=== PATIENT | female | born 1940 | race Two or more races ===

== ENCOUNTER 2021-03-19 15:12 | Inpatient (IN) | payer OTHER ==
[~2021-03-19] VITALS: Ht 165.1 cm; Wt 78.5 kg
[~2021-03-19 15:12] MED LIST: ACET-285 PO; ASCO250T13 PO; ATEN-60 PO; CALC-355 PO; FURO40TA4 PO; GABA300C10 PO; HYDR-531 PO; LEVO75TA6 PO; LOVA20TA4 PO; MULT-228 PO; OMEG100078 PO; POTA10TA51 PO; TRAM50TA2 PO; WARF4TAB33 PO
[2021-03-19 15:56] LABS: Basophils # (auto) 0 10 ^3/uL (0-0.2); Basophils % (auto) 0.2 % (0.0-2.0); Eosinophils # (auto) 0 10 ^3/uL (0-0.8); Eosinophils % (auto) 0.8 % (0.0-7.0); Hematocrit 38.5 % (36.0-46.0); Hemoglobin 12.9 g/dL (12.2-16.2); Lymphocytes # (auto) 0.4 10 ^3/uL (0.4-5.4); Lymphocytes % (auto) 9.5 % (10.0-50.0); Mean Corpuscular Hemoglobin 35.1 pg (28.0-32.0); Mean Corpuscular Hgb Conc. 33.5 g/dL (32.0-36.0); Mean Corpuscular Volume 104.8 fL (80.0-100.0); Monocytes # (auto) 0.3 10 ^3/uL (0-1.3); Monocytes % (auto) 7.3 % (0.0-12.0); Neutrophils # (auto) 3.5 10 ^3/uL (1.6-8.6); Neutrophils % (auto) 82.2 % (37.0-80.0); Nucleated Red Blood Cells % 0.2 %; Red Blood Cells 3.67 10^6/uL (4.0-5.20); Red Cell Distribution Width 14.7 % (11.8-14.3); White Blood Cell 4.3 10^3/uL (4.4-10.8)
[2021-03-19 16:11] LABS: Albumin 3.3 g/dL (3.4-5.0); Calcium 9.5 mg/dL (8.5-10.1); Potassium 4.2 mmol/L (3.5-5.1)
[2021-03-19 16:16] LABS: BUN/Creatinine Ratio 40.7; Bilirubin, Total 2.3 mg/dL (0.2-1.0); Total Protein 6.2 g/dL (6.4-8.2)
[2021-03-19] MEDS ORDERED: ACETAMINOPHEN 325 MG TAB PO PRN (21:30)
[2021-03-19] MEDS ORDERED: TEMAZEPAM 15 MG CAP PO PRN (21:30)
[2021-03-19] MEDS ORDERED: MORPHINE SULFATE 4 MG/ML SYR/VIAL IV PRN (21:30)
[2021-03-19] MEDS ORDERED: ONDANSETRON HCL 4 MG/2 ML VIAL IV PRN (21:30)
[2021-03-19 21:41] LABS: Urine Bacteria MANY /hpf (None Seen); Urine Blood 1+ /uL (Negative); Urine Mucus FEW (None Seen); Urine Specific Gravity 1.025 (1.001-1.035); Urine WBC 3 /hpf (0 - 5)
[2021-03-19] MEDS: ATORVASTATIN 20 MG TAB PO SCH (22:15)
[2021-03-19 23:14] LABS: INR 2.53 (0.9-1.15); Partial Thromboplastin Time 37.2 sec (23.6-33.0)
[2021-03-19] MEDS: cefTRIAXone 1GM/50ML D5W 50 ML IV SCH (23:48)
[2021-03-20] MEDS: LEVOTHYROXINE SODIUM 25 MCG TAB PO SCH (06:57)
[2021-03-20 08:51] LABS: Basophils # (auto) 0 10 ^3/uL (0-0.2); Eosinophils # (auto) 0 10 ^3/uL (0-0.8); Hematocrit 37.9 % (36.0-46.0); Hemoglobin 12.6 g/dL (12.2-16.2); Lymphocytes # (auto) 0.7 10 ^3/uL (0.4-5.4); Mean Corpuscular Hemoglobin 34.8 pg (28.0-32.0); Monocytes # (auto) 0.4 10 ^3/uL (0-1.3); Nucleated Red Blood Cells % 0.2 %; White Blood Cell 3.5 10^3/uL (4.4-10.8)
[2021-03-20 08:55] LABS: Potassium 4.1 mmol/L (3.5-5.1)
[2021-03-20 08:56] LABS: Basophils % (auto) 0.5 % (0.0-2.0); Eosinophils % (auto) 0.5 % (0.0-7.0); Mean Corpuscular Hgb Conc. 33.3 g/dL (32.0-36.0); Mean Corpuscular Volume 104.4 fL (80.0-100.0); Monocytes % (auto) 10.5 % (0.0-12.0); Neutrophils # (auto) 2.4 10 ^3/uL (1.6-8.6); Neutrophils % (auto) 69.5 % (37.0-80.0); Red Blood Cells 3.63 10^6/uL (4.0-5.20); Red Cell Distribution Width 14.8 % (11.8-14.3)
[2021-03-20 09:11] LABS: Albumin 3.1 g/dL (3.4-5.0); BUN/Creatinine Ratio 46.6; Bilirubin, Total 2.1 mg/dL (0.2-1.0); Calcium 9.4 mg/dL (8.5-10.1); Total Protein 5.8 g/dL (6.4-8.2)
[2021-03-20 09:53] LABS: INR 2.4 (0.9-1.15)
[2021-03-20] MEDS: PANTOPRAZOLE 40 MG TAB PO SCH (09:53)
[2021-03-20] MEDS: ATENOLOL 50 MG TAB PO SCH (09:53)
[2021-03-20] MEDS: FUROSEMIDE 40 MG TAB PO SCH (09:53)
[2021-03-20] MEDS: HYDROcodone-ACET 5/325MG TAB PO PRN (15:40)
[2021-03-20] MEDS ORDERED: WARFARIN SODIUM 2 MG TAB PO ONE (17:00)
[2021-03-20] MEDS: cefTRIAXone 1GM/50ML D5W 50 ML IV SCH ×3 (21:06→22:08)
[2021-03-20] MEDS: ATORVASTATIN 20 MG TAB PO SCH (21:06)
[2021-03-21 04:38] VITALS: BP 126/50
[2021-03-21 05:22] LABS: Basophils # (auto) 0 10 ^3/uL (0-0.2); Eosinophils # (auto) 0 10 ^3/uL (0-0.8); Lymphocytes # (auto) 0.5 10 ^3/uL (0.4-5.4); Monocytes # (auto) 0.3 10 ^3/uL (0-1.3); Neutrophils # (auto) 2.5 10 ^3/uL (1.6-8.6); White Blood Cell 3.3 10^3/uL (4.4-10.8)
[2021-03-21 05:25] LABS: Basophils % (auto) 1.2 % (0.0-2.0); Eosinophils % (auto) 0.5 % (0.0-7.0); Hematocrit 35.6 % (36.0-46.0); Hemoglobin 12.2 g/dL (12.2-16.2); Lymphocytes % (auto) 14.6 % (10.0-50.0); Mean Corpuscular Hemoglobin 35.6 pg (28.0-32.0); Mean Corpuscular Hgb Conc. 34.4 g/dL (32.0-36.0); Mean Corpuscular Volume 103.6 fL (80.0-100.0); Monocytes % (auto) 8.3 % (0.0-12.0); Neutrophils % (auto) 75.4 % (37.0-80.0); Nucleated Red Blood Cells % 0.1 %; Red Blood Cells 3.44 10^6/uL (4.0-5.20); Red Cell Distribution Width 14.8 % (11.8-14.3)
[2021-03-21 05:38] LABS: Albumin 2.7 g/dL (3.4-5.0)
[2021-03-21] MEDS: LEVOTHYROXINE SODIUM 25 MCG TAB PO SCH (06:03)
[2021-03-21] MEDS: HYDROcodone-ACET 5/325MG TAB PO PRN ×2 (06:03→21:03)
[2021-03-21 08:00] VITALS: BP 100/60
[2021-03-21] MEDS: FUROSEMIDE 40 MG TAB PO SCH (10:00)
[2021-03-21] MEDS: ATENOLOL 50 MG TAB PO SCH (10:15)
[2021-03-21] MEDS: PANTOPRAZOLE 40 MG TAB PO SCH (10:15)
[2021-03-21 12:00] VITALS: BP 113/54
[2021-03-21 16:00] VITALS: BP 151/73
[2021-03-21] MEDS: ATORVASTATIN 20 MG TAB PO SCH (21:02)
[2021-03-21 22:00] VITALS: BP 120/73
[2021-03-22 05:00] VITALS: BP 139/83
[2021-03-22] MEDS: LEVOTHYROXINE SODIUM 25 MCG TAB PO SCH (06:10)
[2021-03-22 07:17] LABS: INR 3.26 (0.9-1.15); Partial Thromboplastin Time 42.1 sec (23.6-33.0)
[2021-03-22 09:00] VITALS: BP 126/77
[2021-03-22] MEDS: ATENOLOL 50 MG TAB PO SCH (10:00)
[2021-03-22] MEDS: PANTOPRAZOLE 40 MG TAB PO SCH (10:00)
[2021-03-22] MEDS: FUROSEMIDE 40 MG TAB PO SCH (10:00)
[2021-03-22] MEDS ORDERED: IOHEXOL 350 MG/ML 100ML IJ ONE (12:18)
[2021-03-22 12:47] VITALS: BP 121/68
[2021-03-22] MEDS ORDERED: FUROSEMIDE 40 MG TAB PO ONE (19:30)
[2021-03-22 20:20] VITALS: BP 116/66
[2021-03-22] MEDS: cefTRIAXone 1GM/50ML D5W 50 ML IV SCH (21:00)
[2021-03-22 22:00] VITALS: BP 116/66
[2021-03-22] MEDS: ATORVASTATIN 20 MG TAB PO SCH (22:00)
[2021-03-23 05:00] VITALS: BP 116/57
[2021-03-23] MEDS: LEVOTHYROXINE SODIUM 25 MCG TAB PO SCH (06:45)
[2021-03-23 07:18] LABS: INR 1.89 (0.9-1.15); Partial Thromboplastin Time 35.7 sec (23.6-33.0)
[2021-03-23 09:00] VITALS: BP 129/76
[2021-03-23] MEDS: PANTOPRAZOLE 40 MG TAB PO SCH (10:00)
[2021-03-23] MEDS: ATENOLOL 50 MG TAB PO SCH (10:00)
[2021-03-23] MEDS: FUROSEMIDE 40 MG TAB PO SCH (10:00)
== END 2021-03-23 11:24 | DRG 536 ==
LOC: ER 15:12 → WEST WING 15:12 → EDBD 15:12 → OVERFLOW 21:27 → WEST WING 03-20 22:57
PROVIDERS: ADMIT Nurse Practitioner; ATTEND Internal Medicine
DX: S32.512A Fracture of superior rim of left pubis, initial encounter for closed fracture (principal); D68.9 Coagulation defect, unspecified; E44.0 Moderate protein-calorie malnutrition; I48.20 Chronic atrial fibrillation, unspecified; S32.592A Other specified fracture of left pubis, initial encounter for closed fracture; W01.0XXA Fall on same level from slipping, tripping and stumbling without subsequent striking against object, initial encounter; I89.0 Lymphedema, not elsewhere classified; E03.9 Hypothyroidism, unspecified; Z96.642 Presence of left artificial hip joint; Z20.822 Contact with and (suspected) exposure to COVID-19; E78.5 Hyperlipidemia, unspecified; I10 Essential (primary) hypertension; Z82.3 Family history of stroke; Z80.1 Family history of malignant neoplasm of trachea, bronchus and lung; Z68.28 Body mass index [BMI] 28.0-28.9, adult; Y93.89 Activity, other specified; Y92.89 Other specified places as the place of occurrence of the external cause; Y99.8 Other external cause status
CPT/HCPCS: 36415; 70450; 71045; 71275; 72192; 80053; 81001; 82040; 82565; 83880; 84484; 85025; 85610; 85730; 87426; 93005; 96374; 96375; 97110; 97116; 97163; 97530; G0378; J0696; J2405

== ENCOUNTER 2022-01-10 15:04 | Inpatient (IN) | payer OTHER ==
[~2022-01-10] VITALS: Ht 162.6 cm; Wt 52.3 kg
[2022-01-10] MEDS ORDERED: ETOMIDATE (2MG/ML) 20ML VIAL IV ONE ×2 (15:55→16:00)
[2022-01-10] MEDS ORDERED: ROCURONIUM 10MG/ML 10ML VIAL IV ONE ×2 (15:56→16:00)
[2022-01-10] MEDS ORDERED: PROPOFOL 100 ML IV ONE (16:00)
[2022-01-10] MEDS ORDERED: PROPOFOL 100 ML IV SCH (16:00)
[2022-01-10 16:29] VITALS: BP 95/54
[2022-01-10] MEDS ORDERED: SODIUM CHLORIDE 0.9% 2,000 ML IV ONE (16:45)
[2022-01-10 17:03] LABS: Urine Blood 3+ /uL (Negative); Urine Specific Gravity 1.022 (1.001-1.035)
[2022-01-10 17:28] LABS: Amphetamine Screen, Urine NEGATIVE (NEGATIVE); Barbiturate Scree,Urine NEGATIVE (NEGATIVE); Benzodiazephine Screen, Urine NEGATIVE (NEGATIVE); Cannabinoid Screen, Urine NEGATIVE (NEGATIVE); Cocaine Screen, Urine NEGATIVE (NEGATIVE); Opiate Scree,Urine NEGATIVE (NEGATIVE); Phencyclidine Screen, Urine NEGATIVE (NEGATIVE)
[2022-01-10 17:35] LABS: BUN/Creatinine Ratio 38.4; Calcium 9.7 mg/dL (8.5-10.1); Magnesium 2.1 mg/dL (1.6-2.6)
[2022-01-10 17:38] LABS: Bilirubin, Total 2.5 mg/dL (0.2-1.0); Total Protein 5.9 g/dL (6.4-8.2)
[2022-01-10 17:40] LABS: Blood Alcohol < 3.0 mg/dL (0-5); Lipase 107 U/L (73-393)
[2022-01-10 17:43] LABS: Basophils # (auto) 0 10 ^3/uL (0-0.2); Eosinophils # (auto) 0 10 ^3/uL (0-0.8); Lymphocytes # (auto) 0.6 10 ^3/uL (0.4-5.4); Mean Corpuscular Hemoglobin 34.1 pg (28.0-32.0); Monocytes # (auto) 0.6 10 ^3/uL (0-1.3); Nucleated Red Blood Cells % 1.4 %
[2022-01-10 17:44] LABS: Hematocrit 45.5 % (36.0-46.0); Hemoglobin 14.4 g/dL (12.2-16.2); Lymphocytes % (auto) 12.1 % (10.0-50.0); Mean Corpuscular Hgb Conc. 31.8 g/dL (32.0-36.0); Mean Corpuscular Volume 107.4 fL (80.0-100.0); Monocytes % (auto) 11.8 % (0.0-12.0); Neutrophils % (auto) 76.1 % (37.0-80.0); Potassium 6.4 mmol/L (3.5-5.1); Red Blood Cells 4.23 10^6/uL (4.0-5.20); Red Cell Distribution Width 17.2 % (11.8-14.3); White Blood Cell 5.3 10^3/uL (4.4-10.8)
[2022-01-10] MEDS ORDERED: ASPirin 325 MG TAB NG ONE (18:00)
[2022-01-10] MEDS ORDERED: ALBUTEROL SULF 2.5 MG/0.5ML(0.5%) NEB SOLN NEB ONE (18:00)
[2022-01-10] MEDS ORDERED: DexAMETHasone SOD PHOS 10MG/1ML VIAL INJ IV ONE (18:00)
[2022-01-10] MEDS ORDERED: SODIUM ZIRCONIUM CYCL 10 GM PAK PO ONE (18:00)
[2022-01-10] MEDS ORDERED: SODIUM BICARBONATE 8.4% INJ 50ML SYRINGE IV ONE (18:00)
[2022-01-10] MEDS ORDERED: InsuLIN REG 1unit/0.01ml Soln (100units/ml) IV ONE (18:00)
[2022-01-10] MEDS ORDERED: DEXTROSE (50%) 50ML SYRG IV ONE (18:00)
[2022-01-10] MEDS ORDERED: CALCIUM GLUC 1,000mg/50ml-NS 50 ML IV ONE (18:00)
[2022-01-10 18:28] VITALS: BP 127/70
[2022-01-10] MEDS ORDERED: NITROGLYCERIN 0.4 MG SL TAB SL PRN (19:45)
[2022-01-10] MEDS ORDERED: MORPHINE SULFATE INJ 2 MG/ml SYRG IV PRN (19:45)
[2022-01-10] MEDS: VANCOMYCIN 1GM/250ML 250 ML IV ONE ×2 (19:51→20:35)
[2022-01-10 20:00] VITALS: BP 143/73
[2022-01-10] MEDS ORDERED: PANTOPRAZOLE 40 MG/10 ML VIAL INJ IV ONE (20:00)
[2022-01-10] MEDS: fentaNYL Drip 2500mCg/250mlNS 250 ML IV SCH (20:07)
[2022-01-10] MEDS ORDERED: cefTRIAXone 1GM/50ML D5W 50 ML IV ONE (20:15)
[2022-01-10 20:44] LABS: Lactic Acid w/Reflex 3.8 mmol/L (0.4-2.0)
[2022-01-10 21:00] LABS: Cholesterol 100 mg/dL (< 200); LDL Cholesterol 72 mg/dL (< 100); Triglycerides 65 mg/dL (< 150)
[2022-01-10 21:05] LABS: HDL Cholesterol 36 mg/dL (40-59)
[2022-01-10 22:10] VITALS: BP_SYST 62; BP_SYST 98; BP_DIAS 62; BP_DIAS 73
[2022-01-11] VITALS (13 sets, daily range): BP systolic 85–171; BP diastolic 47–86
[2022-01-11] MEDS: SODIUM CHLORIDE 0.9% 1,000 ML IV SCH ×2 (00:07→12:44)
[2022-01-11] MEDS: ALBUTEROL SULF 2.5 MG/0.5ML(0.5%) NEB SOLN NEB SCH ×4 (01:13→18:02)
[2022-01-11] MEDS ORDERED: MIDAZOLAM DRIP 50 mg/50mL 50 ML IV SCH (03:45)
[2022-01-11 04:38] LABS: Basophils # (auto) 0 10 ^3/uL (0-0.2); Eosinophils # (auto) 0 10 ^3/uL (0-0.8); Lymphocytes # (auto) 0.3 10 ^3/uL (0.4-5.4); Mean Corpuscular Hgb Conc. 32.4 g/dL (32.0-36.0); Monocytes # (auto) 0.4 10 ^3/uL (0-1.3); White Blood Cell 6.3 10^3/uL (4.4-10.8)
[2022-01-11 04:41] LABS: Basophils % (auto) 0.1 % (0.0-2.0); Eosinophils % (auto) 0.1 % (0.0-7.0); Lymphocytes % (auto) 4.8 % (10.0-50.0); Monocytes % (auto) 6.2 % (0.0-12.0); Neutrophils # (auto) 5.6 10 ^3/uL (1.6-8.6); Neutrophils % (auto) 88.8 % (37.0-80.0); Nucleated Red Blood Cells % 1.2 %; Red Cell Distribution Width 15.9 % (11.8-14.3)
[2022-01-11 05:03] LABS: Albumin 2.6 g/dL (3.4-5.0); BUN/Creatinine Ratio 49.7; Bilirubin, Total 2.3 mg/dL (0.2-1.0); Calcium 9.2 mg/dL (8.5-10.1); Potassium 4.5 mmol/L (3.5-5.1)
[2022-01-11] MEDS ORDERED: PHENYLEPHRINE INJ 80 MG in SODIUM CHL 0.9% 242 ML IV SCH (08:00)
[2022-01-11] MEDS: PANTOPRAZOLE 40 MG/10 ML VIAL INJ IV SCH (08:36)
[2022-01-11] MEDS: cefTRIAXone 1GM/50ML D5W 50 ML IV SCH (08:37)
[2022-01-11] MEDS ORDERED: ENOXAPARIN SOD 30 MG/0.3 ML SYRINGE SC SCH (10:00)
[2022-01-11] MEDS ORDERED: FUROSEMIDE 20 MG/2 ML VIAL IV ONE (12:30)
[2022-01-11] MEDS: fentaNYL Drip 2500mCg/250mlNS 250 ML IV SCH (12:47)
[2022-01-11] MEDS ORDERED: ACETAMINOPHEN 650 mg PER 20.3 mL UD PO PRN (13:30)
[2022-01-11] MEDS ORDERED: DEXTROSE (50%) 50ML SYRG IV PRN (13:30)
[2022-01-11] MEDS: NOREPINEPHRINE BITARTRATE 16 MG in SODIUM CHL 0.9% 234 ML IV SCH (15:07)
[2022-01-11] MEDS: FUROSEMIDE 20 MG/2 ML VIAL IV SCH (17:23)
[2022-01-11] MEDS: InsuLIN REG 1unit/0.01ml Soln (100units/ml) SC SCH (17:45)
[2022-01-11] MEDS: ACCU-CHEK COMFORT CURVE STRIP VI SCH (17:46)
[2022-01-11] MEDS: IPRATROPIUM BROM 0.5 MG/2.5ML INH SOL NEB SCH (18:02)
[2022-01-11 19:34] LABS: INR 0.77 (0.9-1.15)
[2022-01-11] MEDS ORDERED: ENOXAPARIN SOD 60 MG/0.6 ML SYRINGE SC SCH (22:00)
[2022-01-11 22:56] LABS: Partial Thromboplastin Time 107.8 sec (24.6-33.4)
[2022-01-11] MEDS ORDERED: AMIODARONE HCL (50 MG/ ML) 3 ML VIAL IV ONE (23:43)
[2022-01-11] MEDS ORDERED: AMIODARONE HCL 150 MG in D5W 5% 100 ML IV ONE (23:45)
[2022-01-12] VITALS (22 sets, daily range): BP systolic 76–138; BP diastolic 31–94
[2022-01-12] MEDS: ALBUTEROL SULF 2.5 MG/0.5ML(0.5%) NEB SOLN NEB SCH ×4 (00:05→21:22)
[2022-01-12] MEDS: IPRATROPIUM BROM 0.5 MG/2.5ML INH SOL NEB SCH ×4 (00:05→21:21)
[2022-01-12] MEDS: SODIUM CHLORIDE 0.9% 1,000 ML IV SCH ×3 (03:45→17:53)
[2022-01-12] MEDS: InsuLIN REG 1unit/0.01ml Soln (100units/ml) SC SCH ×4 (06:00→16:19)
[2022-01-12] MEDS: FUROSEMIDE 20 MG/2 ML VIAL IV SCH ×2 (06:00→17:53)
[2022-01-12] MEDS: ACCU-CHEK COMFORT CURVE STRIP VI SCH ×4 (06:00→16:20)
[2022-01-12 06:25] LABS: Basophils # (auto) 0 10 ^3/uL (0-0.2); Eosinophils # (auto) 0 10 ^3/uL (0-0.8); Hemoglobin 13.2 g/dL (12.2-16.2); Lymphocytes # (auto) 0.3 10 ^3/uL (0.4-5.4); Mean Corpuscular Volume 103.3 fL (80.0-100.0); Monocytes # (auto) 0.4 10 ^3/uL (0-1.3)
[2022-01-12 06:27] LABS: Basophils % (auto) 0.3 % (0.0-2.0); Hematocrit 40.1 % (36.0-46.0); Lymphocytes % (auto) 3.9 % (10.0-50.0); Mean Corpuscular Hemoglobin 34.1 pg (28.0-32.0); Monocytes % (auto) 5.3 % (0.0-12.0); Neutrophils # (auto) 6.9 10 ^3/uL (1.6-8.6); Neutrophils % (auto) 90.5 % (37.0-80.0); Nucleated Red Blood Cells % 0.2 %; Red Blood Cells 3.88 10^6/uL (4.0-5.20); Red Cell Distribution Width 15.8 % (11.8-14.3); White Blood Cell 7.6 10^3/uL (4.4-10.8)
[2022-01-12 06:45] LABS: BUN/Creatinine Ratio 64.8; Calcium 7.7 mg/dL (8.5-10.1); Potassium 3.3 mmol/L (3.5-5.1)
[2022-01-12] MEDS ORDERED: POTASSIUM EFFERVESENT TAB 25 MEQ GT ONE (09:30)
[2022-01-12] MEDS: AZITHROMYCIN 500MG/ 250ML 250 ML IV SCH (10:22)
[2022-01-12] MEDS: PANTOPRAZOLE 40 MG/10 ML VIAL INJ IV SCH (10:22)
[2022-01-12] MEDS: cefTRIAXone 1GM/50ML D5W 50 ML IV SCH (10:22)
[2022-01-12] MEDS ORDERED: LOVA20TA4 PO (13:00)
[2022-01-12] MEDS ORDERED: PHYTONADIONE (VIT K)10 MG/ML 1ML VIAL SUBCUT ONE (13:00)
[2022-01-12] MEDS ORDERED: CYAN1TAB14 PO (13:02)
[2022-01-12] MEDS: NOREPINEPHRINE BITARTRATE 16 MG in SODIUM CHL 0.9% 234 ML IV SCH (13:30)
[2022-01-12] MEDS: fentaNYL Drip 2500mCg/250mlNS 250 ML IV SCH (19:45)
[2022-01-13] VITALS (8 sets, daily range): BP systolic 98–128; BP diastolic 35–58
[2022-01-13 03:56] LABS: Basophils # (auto) 0 10 ^3/uL (0-0.2); Basophils % (auto) 0.2 % (0.0-2.0); Eosinophils # (auto) 0 10 ^3/uL (0-0.8); Eosinophils % (auto) 0.1 % (0.0-7.0); Neutrophils # (auto) 4.2 10 ^3/uL (1.6-8.6)
[2022-01-13 03:58] LABS: Hemoglobin 10.6 g/dL (12.2-16.2); Lymphocytes # (auto) 0.5 10 ^3/uL (0.4-5.4); Lymphocytes % (auto) 9.1 % (10.0-50.0); Mean Corpuscular Hemoglobin 34.4 pg (28.0-32.0); Mean Corpuscular Volume 104.2 fL (80.0-100.0); Monocytes # (auto) 0.3 10 ^3/uL (0-1.3); Neutrophils % (auto) 83.6 % (37.0-80.0); Nucleated Red Blood Cells % 0.3 %; Red Blood Cells 3.07 10^6/uL (4.0-5.20); Red Cell Distribution Width 15.9 % (11.8-14.3)
[2022-01-13 04:11] LABS: Albumin 2.1 g/dL (3.4-5.0); Potassium 3.7 mmol/L (3.5-5.1)
[2022-01-13 04:16] LABS: BUN/Creatinine Ratio 60.2; Bilirubin, Total 1.8 mg/dL (0.2-1.0); Total Protein 4.2 g/dL (6.4-8.2)
[2022-01-13] MEDS: IPRATROPIUM BROM 0.5 MG/2.5ML INH SOL NEB SCH ×3 (04:19→12:11)
[2022-01-13] MEDS: ALBUTEROL SULF 2.5 MG/0.5ML(0.5%) NEB SOLN NEB SCH ×3 (04:19→12:11)
[2022-01-13 05:29] LABS: INR 5.42 (0.9-1.15)
[2022-01-13] MEDS: ACCU-CHEK COMFORT CURVE STRIP VI SCH ×2 (06:00)
[2022-01-13] MEDS: InsuLIN REG 1unit/0.01ml Soln (100units/ml) SC SCH ×2 (06:00)
[2022-01-13] MEDS: FUROSEMIDE 20 MG/2 ML VIAL IV SCH (06:37)
[2022-01-13] MEDS ORDERED: PHYTONADIONE (VIT K)10 MG/ML 1ML VIAL SUBCUT ONE (09:30)
[2022-01-13] MEDS: cefTRIAXone 1GM/50ML D5W 50 ML IV SCH (09:35)
[2022-01-13] MEDS: PANTOPRAZOLE 40 MG/10 ML VIAL INJ IV SCH (11:30)
[2022-01-13] MEDS: AZITHROMYCIN 500MG/ 250ML 250 ML IV SCH (11:30)
[2022-01-13] MEDS ORDERED: ACETAMINOPHEN 650 MG RECT SUPP PR PRN (13:00)
[2022-01-13] MEDS ORDERED: ONDANSETRON HCL 4 MG/2 ML VIAL IV PRN (13:00)
[2022-01-13] MEDS ORDERED: HYOSCYAMINE SULF 0.125 MG ODT TAB PO PRN (13:00)
[2022-01-13] MEDS: LORazepam 2MG/ML-1ML VIAL IV PRN ×3 (13:36→22:34)
[2022-01-13] MEDS: MORPHINE SULFATE 4 MG/ML SYR/VIAL IV PRN ×3 (13:38→21:23)
[2022-01-14] MEDS: MORPHINE SULFATE 4 MG/ML SYR/VIAL IV PRN (05:56)
[2022-01-14] MEDS ORDERED: LOVA10TA54 PO (16:03)
[2022-01-14 16:52] VITALS: BP 59/28
== END 2022-01-14 19:28 | DRG 871 ==
LOC: EDSEX 15:04 → ER 15:04 → EDBD 15:04 → EDUNIT# 15:04 → TELE 19:42 → WEST WING 01-14 14:55
PROVIDERS: ADMIT Nurse Practitioner Family; ATTEND Hospitalist
PROC: 5A1945Z Respiratory Ventilation, 24-96 Consecutive Hours (ICD-10-PCS; 2022-01-10)
PROC: 0BH17EZ Insertion of Endotracheal Airway into Trachea, Via Natural or Artificial Opening (ICD-10-PCS; 2022-01-10)
PROC: 05HB33Z Insertion of Infusion Device into Right Basilic Vein, Percutaneous Approach (ICD-10-PCS; principal; 2022-01-11)
PROC: B54MZZA Ultrasonography of Right Upper Extremity Veins, Guidance (ICD-10-PCS; 2022-01-11)
PROC: 30233K1 Transfusion of Nonautologous Frozen Plasma into Peripheral Vein, Percutaneous Approach (ICD-10-PCS; 2022-01-12)
PROC: 06HY33Z Insertion of Infusion Device into Lower Vein, Percutaneous Approach (ICD-10-PCS; 2022-01-12)
DX: A41.9 Sepsis, unspecified organism (principal); G93.41 Metabolic encephalopathy; I21.A1 Myocardial infarction type 2; J96.01 Acute respiratory failure with hypoxia; I50.31 Acute diastolic (congestive) heart failure; E46 Unspecified protein-calorie malnutrition; I48.20 Chronic atrial fibrillation, unspecified; N17.9 Acute kidney failure, unspecified; N39.0 Urinary tract infection, site not specified; D68.9 Coagulation defect, unspecified; I48.92 Unspecified atrial flutter; Z68.1 Body mass index [BMI] 19.9 or less, adult; Z99.11 Dependence on respirator [ventilator] status; T45.511A Poisoning by anticoagulants, accidental (unintentional), initial encounter; Z66 Do not resuscitate; Z20.822 Contact with and (suspected) exposure to COVID-19; E87.5 Hyperkalemia; E78.5 Hyperlipidemia, unspecified; I11.0 Hypertensive heart disease with heart failure; E07.9 Disorder of thyroid, unspecified; Z51.5 Encounter for palliative care; Y92.89 Other specified places as the place of occurrence of the external cause; Z79.01 Long term (current) use of anticoagulants; Z82.3 Family history of stroke; Z95.2 Presence of prosthetic heart valve
CPT/HCPCS: 31500; 36415; 36600; 70450; 71045; 80048; 80053; 80061; 80307; 80320; 80329; 81003; 82140; 82805; 82962; 83605; 83690; 83735; 83880; 83930; 84132; 84443; 84484; 85025; 85610; 85730; 86850; 86900; 86901; 87040; 87070; 87086; 87205; 87426; 87804; 93005; 93306; 94002; 94003; 94640; 94644; 96365; 96375; 99291; C9113; G0378; J0696; J1100; J1815; J2250; J2405; J2704; J3430; J7060